=== PATIENT | male | born 1940 | race Caucasian/White ===

== ENCOUNTER 2017-10-04 14:48 | Emergency (ER) | payer MEDICARE, OTHER, SELFPAY ==
--- NOTE | 2017-10-04 15:08 | ED_ITS ---
HPI - Skin/Abscess/Foreign Bdy <EDVIN Mauricio - Last Filed: 10/04/17 23:02> General Chief complaint: Skin/Abscess/Foreign Body Stated complaint: STATES LESIONS ON REAR Time Seen by Provider: 10/04/17 15:07 Source: patient Mode of arrival: ambulatory Limitations: no limitations History of Present Illness HPI narrative: 77-year-old male here for complaint of bumps to his left buttocks for the last couple of days. He denies any trauma to the area. He states that they are itchy. He does not know where that came from. No other concerns or complaints no fevers no chills. He denies any discomfort. No drainage from the area. complaint: lesion Related Data Home Medications Medication Instructions Recorded Confirmed Blood Pressure Medications 1 dose PO DAILY 10/04/17 10/04/17 aspirin 81 mg PO DAILY 10/04/17 10/04/17 Allergies Allergy/AdvReac Type Severity Reaction Status Date / Time penicillin G [PENICILLIN G] Allergy Unknown Verified 10/04/17 15:14 Review of Systems <EDVIN Mauricio - Last Filed: 10/04/17 23:02> Constitutional Denies chills, Denies fever(s), Denies lethargy and Denies weakness Eyes Reports as per HPI ENT Ears, Nose, Mouth, and Throat: Denies change in voice, Denies neck pain and Denies sore throat Cardiovascular Denies chest pain, Denies irregular heart rhythm, Denies lightheadedness, Denies palpitations, Denies dyspnea, Denies dyspnea on exertion and Denies orthopnea Respiratory Denies cough, Denies dyspnea, Denies dyspnea on exertion and Denies wheezing Gastrointestinal Gastrointestinal: Denies abdominal pain, Denies change in bowel habits, Denies diarrhea, Denies nausea and Denies vomiting Genitourinary Denies hematuria, Denies flank pain, Denies urinary incontinence and Denies urinary urgency Musculoskeletal Denies neck pain Integumentary/Breasts Comments: Red bump/lesions to his left buttocks Neurologic Denies confusion and Denies weakness Psychiatric Denies anxiety, Denies confusion, Denies depression, Denies homicidal ideation and Denies suicidal ideation Endocrine Denies palpitations Hematologic/Lymphatic Denies easy bruising Allergic/Immunologic Denies wheezing Exam <EDVIN Mauricio - Last Filed: 10/04/17 23:02> Initial Vital Signs Initial Vital Signs: Vital Signs Temperature 97.8 F 10/04/17 15:11 Pulse Rate 85 10/04/17 15:11 Respiratory Rate 16 10/04/17 15:11 Blood Pressure 143/86 H 10/04/17 15:11 Pulse Oximetry 95 10/04/17 15:11 Const General: cooperative and well developed Nutritional Appearance: well nourished Orientation: alert, awake, oriented x3 and not confused [facility] Mouth: oral mucosae normal and moist mucous membranes Eyes Conjunctivae: conjunctivae normal Sclera: sclerae normal Pupils: PERRL EOM: EOM intact bilaterally Chest Chest: normal inspection of the chest Resp Effort & Inspection: normal respiratory effort, able to speak in complete sentences, no respiratory distress and no use of accessory muscles Auscultation: clear to auscultation bilaterally, no rales, no rhonchi and no wheezes Cardio Rate: regular rate Rhythm: regular rhythm Heart Sounds: no click, no gallops, no murmurs and no rubs Pulses: normal peripheral pulses Skin Lesions: other (For erythematous papules in cluster to his left buttocks area. No surrounding erythema. No open lesions. No fluctuance or induration) <DO Koko García Last Filed: 10/05/17 07:22> Initial Vital Signs Initial Vital Signs: Vital Signs Temperature 97.8 F 10/04/17 15:11 Pulse Rate 85 10/04/17 15:11 Respiratory Rate 16 10/04/17 15:11 Blood Pressure 143/86 H 10/04/17 15:11 Pulse Oximetry 95 10/04/17 15:11 Course <EDVIN Mauricio - Last Filed: 10/04/17 23:02> Vital Signs - 8 hr 10/04/17 15:11 Temperature 97.8 F Pulse Rate 85 Respiratory Rate 16 Blood Pressure 143/86 H Pulse Oximetry 95 <DO Koko García Last Filed: 10/05/17 07:22> Vital Signs - 8 hr 10/04/17 15:11 Temperature 97.8 F Pulse Rate 85 Respiratory Rate 16 Blood Pressure 143/86 H Pulse Oximetry 95 MDM - Skin/Abscess/Foreign Bdy <EDVIN Mauricio - Last Filed: 10/04/17 23:02> MDM Narrative Medical decision making narrative: Papules to the left buttocks area appeared to be due to insect bites. Use [id number] hydrocortisone cream to the area for the next 5 days to help with itch. Follow up with primary care provider. For any worsening symptoms return to the emergency room. Discharge Plan Departure Patient Disposition: Home, Self-Care Clinical Impression: Insect bites, Acute papular eruption of skin Discharge Date/Time: 10/04/17 17:11 Interventions: ED Discharge Assessment Last Done: 10/04/17 17:11 Instructions: DI for Insect Bites and Stings Activity Restrictions/Additional Instructions: Sinus symptoms presents as insect bites the left buttocks. Use over-the- counter 1% hydrocortisone cream to area for the next 5 days to help with itching. Follow up with her primary care provider. For any worsening symptoms return to the emergency room. Bites should resolve on its own in the next several days Prescriptions: No Action aspirin 81 mg Tablet,Delayed Release (Dr/Ec) 81 mg PO DAILY RF: 0 Blood Pressure Medications 1 dose PO DAILY RF: 0 Referrals: [facility] [Provider Group] <Abel Sanchez DO - Last Filed: 10/05/17 07:22> Cosign ED Attending Guero Attestation: I was available for consultation during this patient's emergency department encounter
[2017-10-04 15:11] VITALS: BP 143/86; PULSE 85; RESP 16; TEMP 36.6; O2SAT 95
== END 2017-10-04 17:11 | disposition home or self-care (01) ==
PROVIDERS: Emergency Provider Nurse Practitioner Family
DX: R21 Rash and other nonspecific skin eruption (principal)
CPT/HCPCS: 99282